=== PATIENT | female | born 1955 | race Hispanic/Latino ===

== ENCOUNTER 2020-07-13 13:59 | Outpatient (CLI) | payer MEDICARE, BC ==
--- NOTE | 2020-07-13 16:40 | Mammography Report ---
DIGITAL SCREENING MAMMOGRAM WITH TOMOSYNTHESIS WITH CAD, 07/13/2020 CLINICAL INFORMATION / INDICATION: Routine Screening Mammography. TECHNIQUE: Digital bilateral 2D and 3D mammography with tomosynthesis was obtained in the craniocaud al and mediolateral oblique projections. Computer-Aided Detection (CAD) analysis was used for interp retation of this study. COMPARISON: 07/09/2019, 08/22/2016 FINDINGS: Breast Density: The breasts are extremely dense, which lowers the sensitivity of mammography. No dominant mass, suspicious calcifications, or architectural distortion in either breast. No interval change. IMPRESSION: No mammographic evidence of malignancy. Follow up recommendation: Routine yearly BI-RADS Category 1: Negative. A "normal" or negative report should not discourage follow up or biopsy of a clinically significant f inding. A written summary of these findings will be mailed to the patient. The patient will be entered into a mammography reporting system which will generate a reminder letter for the patient's next appointmen t at the appropriate interval. The [employer] recommends yearly mammograms starting at age 40 and continuing as l natalie as a woman is in good health. Breast MRI is recommended for women with an approximate 20-25% or greater lifetime risk of breast cancer, including women with a strong family history of breast or ova lc cancer or who have been treated for Hodgkin's disease. Signer Name: Mary Melendrez MD Signed: 07/13/2020 4:36 PM Workstation Name: [id number]
== END 2020-07-13 14:00 | disposition home or self-care (01) ==
LOC: MAMMO 13:59
PROVIDERS: ATTEND Surgery
DX: Z12.31 Encounter for screening mammogram for malignant neoplasm of breast (principal)
CPT/HCPCS: 77063; 77067

== ENCOUNTER 2020-09-29 11:31 | Outpatient (CLI) | payer MEDICARE, BC ==
--- NOTE | 2020-09-29 13:22 | Ultrasound Report ---
ULTRASOUND BREAST RIGHT LIMITED, 09/29/2020 CLINICAL INFORMATION / INDICATION: ABNORMAL MAMMO R92.8. Patient presents for evaluation of an area o f palpable concern in the right breast. Patient also presents for evaluation of possible right axilla ry adenopathy. TECHNIQUE: Targeted ultrasound evaluation was performed of the area of interest. COMPARISON: Prior mammogram 07/13/2020 FINDINGS: Targeted ultrasound of the area of palpable concern in the 12:00 right breast reveals normal fibrogla ndular tissue with no suspicious cystic or solid lesion identified. Targeted ultrasound of the right axilla reveals several enlarged right axillary lymph node with diffuse cortical thickening, measuring up to 6 to 7 mm in thickness. IMPRESSION: 1. There are several enlarged right axillary lymph nodes which are indeterminate and may be reactive, though ultrasound-guided biopsy is recommended for confirmation. 2. There is no sonographic abnormality at the site of palpable concern in the 12:00 right breast, the refore clinical correlation is recommended. Follow up recommendation: Biopsy BI-RADS Category 4: Suspicious for Malignancy. A normal or "negative" report should not preclude biopsy or follow-up of a clinically suspicious find ing. Signer Name: Radha Magana MD Signed: 09/29/2020 1:17 PM Workstation Name: [id number]
== END 2020-09-29 11:32 | disposition home or self-care (01) ==
LOC: SPVWC 11:31
PROVIDERS: ATTEND Surgery
DX: R92.8 Other abnormal and inconclusive findings on diagnostic imaging of breast (principal); R59.0 Localized enlarged lymph nodes

== ENCOUNTER 2020-10-19 10:42 | Outpatient (CLI) | payer MEDICARE, BC ==
--- NOTE | 2020-10-19 12:18 | Ultrasound Report ---
Procedure: Ultrasound-guided right axillary biopsy, 10/19/2020 Clinical information/indication: The patient has a history of palpable lump in the right axilla. Rece nt right axillary ultrasound demonstrated multiple prominent lymph nodes. She presents for ultrasound -guided biopsy. Comparison: Right axillary ultrasound, 09/29/2020. Screening mammogram, 07/13/2020 Procedure: The benefits, indications and risks were discussed with the patient including but not limi tiara to bleeding, infection, hematoma formation, and inadequate tissue sampling. The patient agreed to proceed with both verbal and written consent. A timeout procedure was performed using 2 patient iden tifiers. The right axilla was prepped and draped in the usual sterile fashion. Lidocaine 1% with and without e pinephrine were used for local anesthesia. Under direct ultrasound guidance, a total of 4 core sample s were obtained of the lymph node in the right axilla. A biopsy marker was then placed. Biopsy devic e was removed and hemostasis achieved with manual pressure. A sterile dressing was applied to the ski n. The patient tolerated the procedure without difficulty. No complications were encountered. Postbiopsy instructions were discussed with the patient and given in writing. Core specimens were placed in bot h preservative and saline for flow cytometry evaluation. IMPRESSION: 1. Technically successful right axillary lymph node biopsy. Biopsy results are pending and will be re ported in an addendum. Signer Name: Katia Mariee MD Signed: 10/19/2020 12:14 PM Workstation Name: [id number]
== END 2020-10-19 10:43 | disposition home or self-care (01) ==
LOC: SPVWC 10:42
PROVIDERS: ATTEND Surgery
DX: R92.8 Other abnormal and inconclusive findings on diagnostic imaging of breast (principal); Z79.899 Other long term (current) drug therapy
CPT/HCPCS: 38505; 76942; 88184; 88185; 88305